=== PATIENT | male | born 1970 | race Caucasian/White ===

== ENCOUNTER 2017-12-10 11:03 | Emergency (ER) | payer OTHER ==
[2017-12-10] MEDS ORDERED: Tetracaine HCl/PF 0.5% 4 ML Bottle EYERT ONE (11:20)
[2017-12-10] MEDS ORDERED: Balanced Salt Solution Ophth Irrig 30 ML Bottle EYERT ONE (11:22)
[2017-12-10] MEDS: Erythromycin Base 0.5% Ophth Oint 3.5 GM Tube EYERT ONE ×2 (11:27→11:40)
[2017-12-10] MEDS ORDERED: predniSONE 20 MG Tab PO ONE (11:44)
[2017-12-10] MEDS ORDERED: diphenhydrAMINE 25 MG Cap PO ONE (11:44)
--- NOTE | 2017-12-10 12:02 | EDM.PDOC ---
ED HPI GENERAL MEDICAL PROBLEM - General Chief Complaint: Eye Problems Stated Complaint: right eye pain Time Seen by Provider: 12/10/17 11:14 Source of Information: Reports: Patient - History of Present Illness INITIAL COMMENTS - FREE TEXT/NARRATIVE: Patient here due to continued pain/swelling of right eye that started on while working at [employer]. It has gradually worsened over time. He thinks that he got a piece of shot that they use for sandblasting in his eye. He was wearing safety glasses at the time. Patient did go to nurse who examined the eye and did not find a FB. He was given eye drops to flush his eye. Since then he has continued to experience discomfort/swelling/tearing in right eye. Vision is blurry in affected eye per patient. No purulent drainage noted. No redness to lids noted. No fevers/chills. Discomfort is located in right upper outer area of eye and lid region. No other complaints. right eye Pain Score (Numeric/FACES): 6 - Related Data Allergies Allergy/AdvReac Type Severity Reaction Status Date / Time No Known Allergies Allergy Verified 12/10/17 11:09 Home Meds: Home Meds . [No Known Home Meds] 12/10/17 [History] Past Medical History - Past Health History Medical/Surgical History: Denies Medical/Surgical History ED ROS GENERAL - Review of Systems Review Of Systems: ROS reveals no pertinent complaints other than HPI. ED EXAM GENERAL W FULL EYE - Physical Exam Exam: See Below Exam Limited By: No Limitations General Appearance: Alert, WD/WN, Mild Distress Eye Exam: Right Eye: Conjunctival Injection, Corneal Abrasion, Vision Changes ( Patient can only see big E on top of eye chart), Bilateral Eye: EOMI, PERRL Visual Acuity (R) 20/: 100 Visual Acuity (L) 20/: 20 Eyelids: Right: Lid Everted for Exam, Bilateral: Normal Appearance Conjunctiva & Sclera: Right: Conjunctival Edema, Discharge, Injected, Left: Normal Appearance Cornea Exam: Right: Corneal Abrasion (at 6 o'clock), Examined with Flourescein Extraocular Movements: Bilateral: Intact Pupils: Normal Accommodation Pupillary Size: Bilateral: 5 mm Pupillary Reaction: Bilateral: Brisk Anterior Chamber: Bilateral: Normal Appearance Posterior Chamber: Right: Unable to Examine Ears: Normal External Exam Nose: No: Nasal Deformity, Nasal Swelling, Nasal Drainage Throat/Mouth: Normal Inspection, Normal Lips, Normal Voice, No Airway Compromise Head: Atraumatic, Normocephalic Neck: Supple Respiratory/Chest: No Respiratory Distress Extremities: Normal Capillary Refill Neurological: Alert, Oriented, CN II-XII Intact, Normal Cognition, Normal Gait Psychiatric: Normal Affect, Normal Mood Skin Exam: Warm, Dry, Intact, Normal Color Course - Vital Signs Last Recorded V/S: Last Vital Signs Temp 36.5 C 12/10/17 11:16 Pulse 67 12/10/17 11:16 Resp 18 12/10/17 11:16 BP 133/84 12/10/17 11:16 Pulse Ox 95 12/10/17 11:16 - Orders/Labs/Meds Meds: Medications Discontinued Medications Generic Name Dose Route Start Last Admin Trade Name Freq PRN Reason Stop Dose Admin Balanced Salt Solution 1 ml 12/10/17 11:22 12/10/17 11:27 Eye Stream Eye Rinse EYERT 12/10/17 11:23 1 ml ONETIME ONE Administration Diphenhydramine HCl 50 mg 12/10/17 11:44 12/10/17 11:57 Benadryl PO 12/10/17 11:45 50 mg ONETIME ONE Administration Erythromycin 1 gm 12/10/17 11:24 12/10/17 11:40 Erythromycin 0.5% Ophth Oint EYERT 12/10/17 11:25 Not Given ONETIME ONE Prednisone 40 mg 12/10/17 11:44 12/10/17 11:57 Prednisone PO 12/10/17 11:45 40 mg ONETIME ONE Administration Tetracaine HCl 1 ml 12/10/17 11:20 12/10/17 11:26 Tetracaine 0.5% Steri-Unit Kesha EYERT 12/10/17 11:21 1 ml ASDIRECTED ONE Administration - Re-Assessments/Exams Free Text/Narrative Re-Assessment/Exam: 12/10/17 12:23 No FB identified visually. Unable to palpate a FB in area of most discomfort which was upper lateral lid area (unable to visually inspect this area due to eye anatomy. Corneal abrasion was identified. Pain improved with Tetracaine drops. Polymyxin B/Trimethoprim drops instilled into affected eye. Patching not performed due to eye discomfort. No signs suggestive of orbital cellulitis noted. Plan is to have patient follow up with local eye provider tomorrow for recheck. If he has worsening problems he is to return to ER and can get referral to ophthalmology for further evaluation. Departure - Departure Time of Disposition: 11:57 Disposition: Home, Self-Care 01 Condition: Good Clinical Impression: Acute right eye pain Corneal abrasion Qualifiers: Encounter type: initial encounter Laterality: right Qualified Code(s): S05.01XA - Injury of conjunctiva and corneal abrasion without foreign body, right eye, initial encounter - Discharge Information Instructions: Polymyxin B; Trimethoprim eye drops, solution, Corneal Abrasion, Diphenhydramine capsules or tablets, Prednisolone tablets, Acetaminophen; Codeine tablets , Tetracaine eye solution Referrals: Sheets-Nancy Ulrich MD [Primary Care Provider] - Forms: ED Department Discharge Additional Instructions: Continue the eye drops: 1 drop in right eye every 3 hours for one week. OK to take the T#3 tabs 1 every 4-6 hours to help with discomfort. You may take one regular Tylenol along with it for added pain relief but no more than that as the T#3 already has Tylenol in it. OK to take ibuprofen or Aleve. OK to apply ice to area to help with discomfort. Follow up tomorrow with your local eye provider for recheck if no significant improvement in symptoms noted. Follow up in ER if you note worsening issues, such as increased swelling of eyelids or development of redness/warmth of eye lids.
== END 2017-12-10 12:25 | disposition home or self-care (01) ==
LOC: LL.ED 11:03
DX: S05.01XA Injury of conjunctiva and corneal abrasion without foreign body, right eye, initial encounter (principal); X58.XXXA Exposure to other specified factors, initial encounter; Y99.0 Civilian activity done for income or pay
CPT/HCPCS: 99283; A9270-GY

== ENCOUNTER 2020-08-16 01:27 | Emergency (ER) | payer BC ==
--- NOTE | 2020-08-16 01:40 | EDM.PDOC ---
ED HPI GENERAL MEDICAL PROBLEM - General Chief Complaint: Drug or Alcohol Abuse Stated Complaint: REQ BLOOD ALCOHOL Time Seen by Provider: 08/16/20 01:36 Source of Information: Reports: Patient History Limitations: Reports: No Limitations - History of Present Illness INITIAL COMMENTS - FREE TEXT/NARRATIVE: Patient requests blood alcohol. No acute complaints. Was pulled over and feels that what he blew for police is artificially high. - Related Data Allergies Allergy/AdvReac Type Severity Reaction Status Date / Time No Known Allergies Allergy Verified 08/16/20 01:40 Home Meds: Home Meds . [No Known Home Meds] 12/10/17 [History] Past Medical History - Past Health History Medical/Surgical History: Denies Medical/Surgical History Social & Family History - Caffeine Use Caffeine Use: Reports: Coffee, Soda ED ROS GENERAL - Review of Systems Review Of Systems: Comprehensive ROS is negative, except as noted in HPI. ED EXAM, GENERAL - Physical Exam Exam: See Below Exam Limited By: No Limitations General Appearance: Alert, WD/WN, No Apparent Distress Eye Exam: Left Eye: EOMI, PERRL Ears: Hearing Grossly Normal Throat/Mouth: Normal Voice, No Airway Compromise Head: Atraumatic, Normocephalic Respiratory/Chest: No Respiratory Distress Neurological: Alert, Oriented, Normal Cognition, Normal Gait Psychiatric: Normal Affect, Normal Mood Skin Exam: Warm, Dry, Intact, Normal Color Course - Vital Signs Last Recorded V/S: Last Vital Signs Temp 35.9 C L 08/16/20 01:39 Pulse 92 08/16/20 01:39 Resp 14 08/16/20 01:39 BP 153/77 H 08/16/20 01:39 Pulse Ox 96 08/16/20 01:39 - Orders/Labs/Meds Labs: Laboratory Tests 08/16/20 Range/Units 01:40 Ethyl Alcohol 0.212 H (0.000-0.080) g/dL - Re-Assessments/Exams Free Text/Narrative Re-Assessment/Exam: 08/16/20 01:39 Blood alcohol ordered. Patient can be discharged home. Was given ride to ER. Blood alcohol noted to be 0.21 Departure - Departure Time of Disposition: 01:50 Disposition: Home, Self-Care 01 Condition: Good Clinical Impression: Encounter for blood-alcohol test - Discharge Information Forms: ED Department Discharge Additional Instructions: Follow up as needed.
== END 2020-08-16 01:56 | disposition home or self-care (01) ==
LOC: LL.ED 01:27
DX: Z02.83 Encounter for blood-alcohol and blood-drug test (principal)
CPT/HCPCS: 36415; 80307; 99282; 99283

== ENCOUNTER 2024-02-15 10:51 | Day surgery (SDC) | payer BC ==
[~2024-02-15 10:51] MED LIST: Midazolam 1 MG/ML 2 ML SDV ONE; Propofol 200 MG/20 ML SDV ONE
[2024-02-15] MEDS ORDERED: Sodium Chloride 0.9% 10 ML Syringe FLUSH PRN (11:00)
[2024-02-15] MEDS: Lactated Ringers 1,000 ML IV SCH (11:09)
== END 2024-02-15 12:38 ==
LOC: LL.SDS 10:51
PROVIDERS: ATTEND Surgery
DX: Z12.11 Encounter for screening for malignant neoplasm of colon (principal); F17.210 Nicotine dependence, cigarettes, uncomplicated; Z79.899 Other long term (current) drug therapy
CPT/HCPCS: J2250; J2704; J7120